=== PATIENT | male | born 1995 | race Caucasian/White ===

== ENCOUNTER → 2020-04-22 | Outpatient (CLI) | payer BC ==
--- NOTE | 2020-04-22 11:52 | XR ---
EXAMINATION TYPE: XR chest 2V DATE OF EXAM: 04/22/2020 COMPARISON: 01/13/2005 HISTORY: 24-year-old male for chest pain TECHNIQUE: Frontal and lateral views FINDINGS: Heart normal size. Aorta and pulmonary vasculature within normal limits. No consolidation or pleural effusion. IMPRESSION: No acute cardiopulmonary process.
== END | disposition home or self-care (01) ==
LOC: RADXRYALE 11:27
PROVIDERS: ATTEND Family Medicine
DX: R07.89 Other chest pain (principal)
CPT/HCPCS: 71046

== ENCOUNTER → 2023-08-17 | Outpatient (CLI) | payer BC ==
--- NOTE | 2023-08-17 16:42 | MR ---
EXAMINATION TYPE: MR brain wo con DATE OF EXAM: 08/17/2023 COMPARISON: None HISTORY: Headaches for several years CONTRAST: Performed utilizing 0 mL intravenous Gadavist gadolinium contrast. TECHNIQUE: Multiplanar, multiecho imaging on a 3.0 Rossy magnet is performed through the brain. Stud y is performed within 24 hours of arrival to the hospital. The craniovertebral junction is normal. The pituitary is normal. Optic chiasm appears normal. Diffusion-weighted imaging is performed. No abnormal hyperintensity is present to suggest an acute i ntracranial infarct or acute ischemic change. No suspicious signal abnormalities are identified. Typical punctate white matter changes associated w ith migraine headaches is not identified. Ventricles and sulci are appropriate for the patient age. No effacement is evident. No hydrocephalus. IMPRESSION: 1. Normal-appearing noncontrast MRI brain. 2. No suspicious abnormalities account for headaches.
--- NOTE | 2023-08-17 16:54 | MR ---
EXAMINATION TYPE: MR angio head wo con DATE OF EXAM: 08/17/2023 COMPARISON: None HISTORY: Headaches for several years, forgetfulness CONTRAST: None TECHNIQUE: Multiplanar multiecho imaging on a 3.0 Rossy magnet is performed through the [place] of [place]. 3-D [id number] imaging is performed. Source images are reviewed on the computer in the axi al plane. Reconstructed images rotating on the computer are reviewed. FINDINGS: The internal carotid arteries bifurcate normally into A1 and M1 segments. The A2 segments are normal. Middle cerebral artery branches are normal. Ophthalmic artery origins appear normal. Carotid siphons are unremarkable. Anterior communicating artery is small but patent. The right posterior communicating artery is patent. The left posterior communicating artery is patent. Vertebrobasilar arteries within the [id number] are normal. Posterior cerebral vasculature is norm al. No suspicious aneurysm or aneurysmal dilatation is evident. No obstructions are identified. No significant flow-limiting stenosis is evident. IMPRESSION: 1. NORMAL MRA [place] OF [place].
== END | disposition home or self-care (01) ==
LOC: RADMRIMAIN 15:31
PROVIDERS: ATTEND Family Medicine
DX: G43.C0 Periodic headache syndromes in child or adult, not intractable (principal); R41.3 Other amnesia
CPT/HCPCS: 70544; 70551